=== PATIENT | male | born 1995 | race Caucasian/White ===

== ENCOUNTER 2017-12-25 03:50 | Inpatient (IN) | payer OTHER ==
[2017-12-25] VITALS (9 sets, daily range): BP systolic 116–151; BP diastolic 59–74; PULSE 65–83; RESP 18–20; TEMP 98.1–98.7; O2SAT 94–100
[~2017-12-25] VITALS: Ht 177.8 cm; Wt 80.0 kg
[2017-12-25] MEDS ORDERED: IOHEXOL 350 MG/ML 10 ML VIAL (for RAD DIAG) IVCONTRAST ONE (03:57)
[2017-12-25] MEDS ORDERED: MORPHINE SULFATE 4 MG/ML INJ ONE ×3 (03:58→17:09)
[2017-12-25] MEDS ORDERED: METOCLOPRAMIDE HCL 10 MG/2 ML VIAL ONE (03:59)
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
[2017-12-25 04:13] LABS: AUTOMATED NEUTROPHIL # 4.1 TH/MM3 (1.8-7.7); BASOPHIL % 0.2 % (0.0-2.0); EOSINOPHIL % 0.5 % (0.0-4.0); HEMATOCRIT 40.7 % (39.0-51.0); LYMPH % 37.1 % (9.0-44.0); LYMPHOCYTE # 2.7 TH/MM3 (1.0-4.8); MEAN CELL VOLUME 90.6 FL (80.0-100.0); MEAN CORPUSCULAR HEMOGLOBIN 31.2 PG (27.0-34.0); MEAN CORPUSCULAR HGB CONC 34.4 % (32.0-36.0); MEAN PLATELET VOLUME 8.1 FL (7.0-11.0); MONO % 6.2 % (0.0-8.0); MONOCYTE # 0.5 TH/MM3 (0-0.9); PLATELET COUNT 220 TH/MM3 (150-450); RED BLOOD COUNT 4.49 MIL/MM3 (4.50-5.90); RED CELL DISTRIBUTION WIDTH 14.2 % (11.6-17.2); WHITE BLOOD COUNT 7.4 TH/MM3 (4.0-11.0)
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
[2017-12-25] MEDS ORDERED: CHLORHEXIDINE GLUCONATE 2 % 1 PACK (2 CLOTHS) TOP PRN (04:30)
[2017-12-25] MEDS ORDERED: NURSING INFORMATION XX SCH (04:30)
[2017-12-25] MEDS ORDERED: ONDANSETRON ODT 4 MG TAB PO PRN (04:30)
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
[2017-12-25] MEDS ORDERED: GENTAMICIN 80 MG PREMIX 100 ML IV ONE (04:45)
[2017-12-25] MEDS ORDERED: GENTAMICIN INJ 80 MG in SODIUM CHLORIDE 0.9% INJ 100 ML IV ONE (05:00)
[2017-12-25] MEDS: LACTATED RINGER'S 1000 ML INJ 1,000 ML IV SCH (05:30)
[2017-12-25] MEDS: HYDROmorphone HCL PF 2 MG/ML VIAL IV PUSH PRN ×3 (06:34→14:35)
[2017-12-25] MEDS: cefTRIAXone INJ 1,000 MG in SODIUM CHLORIDE 0.9% INJ 100 ML IV SCH ×2 (06:34→18:57)
[2017-12-25] MEDS ORDERED: ACETAMINOPHEN 1000 MG/100 ML 100 ML IV ONE (06:42)
[2017-12-25] MEDS ORDERED: LACTATED RINGER'S 1000 ML IV PRN (07:45)
[2017-12-25] MEDS ORDERED: SODIUM CHLORID 0.9% 500 ML IV PRN (07:45)
[2017-12-25 08:05] LABS: PROTHROMBIN TIME - PATIENT 10.4 SEC (9.8-11.6)
[2017-12-25] MEDS: MAGNESIUM HYDROXIDE SUSP 30 ML CUP PO SCH ×2 (09:00→19:48)
[2017-12-25] MEDS: DOCUSATE SODIUM 100 MG CAP PO SCH ×2 (09:00→19:48)
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
[2017-12-25] MEDS ORDERED: ROCURONIUM INJ 50 MG/5 ML SYRINGE IV PUSH ONE (12:00)
[2017-12-25] MEDS ORDERED: LIDOCAINE HCL 1% PF 5 ML SYRINGE OTHER ONE (12:00)
[2017-12-25] MEDS ORDERED: PROPOFOL 200 MG/20 ML AMP IV ONE (12:00)
[2017-12-25] MEDS ORDERED: ceFAZolin INJ 1,000 MG VIAL IV ONE ×2 (12:00→15:38)
[2017-12-25] MEDS ORDERED: GLYCOPYRROLATE 1 MG/5 ML SYRINGE IV PUSH ONE (12:00)
[2017-12-25] MEDS ORDERED: NEOSTIGMINE 5 MG/5 ML SYRINGE IV PUSH ONE (12:00)
[2017-12-25] MEDS ORDERED: ONDANSETRON HCL 4 MG/2 ML VIAL IV ONE (12:00)
[2017-12-25] MEDS ORDERED: LACTATED RINGER'S 1000 ML INJ 1,000 ML IV ONE (12:00)
[2017-12-25] MEDS ORDERED: DEXAMETHASONE SOD PHOS 4 MG/ML VIAL IV ONE (12:00)
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
[2017-12-25] MEDS ORDERED: MAGN30S PO (12:44)
[2017-12-25] MEDS ORDERED: DOCU1CAP39 PO (12:44)
[2017-12-25] MEDS ORDERED: GENTAMICIN SULFATE 80 MG/2 ML VIAL ONE ×2 (14:41→15:48)
[2017-12-25] MEDS ORDERED: SODIUM CHLORIDE 0.9% INJ 100 ML ONE (15:49)
[2017-12-25] MEDS ORDERED: SODIUM CHLORIDE 0.9% INJ 50 ML ONE (15:56)
--- NOTE | 2017-12-25 16:38 | HHI.PR ---
cc: Latasha Jaime MD Immediate Post Op Note Procedure Date: December 25, 2017 Pre Op Diagnosis: Open right clavicle fracture Open right scapula fracture Degloving injury to right shoulder Post Op Diagnosis: same Surgeon: Latasha Jaime Loss Mitigation Specialist(s): none Procedure: Irrigation and debridement right open clavicle and scapula fractures Application of wound vac device, 14cm x 7cm x 5cm Findings: Gross contamination with soil and glass Complications: none Specimen(s) removed: none Estimated blood loss: 25cc Anesthesia: General Drains: Other IVF Patient to: PACU Patient Condition: Good Date/Time of Procedure: SEE SURGICAL CARE RECORD Latasha Jaime MD December 25, 2017 16:38
[2017-12-25] MEDS ORDERED: SODIUM CHLORIDE 0.9% FLUSH 10 ML FLUSH IV FLUSH PRN (16:45)
[2017-12-25] MEDS ORDERED: Post-op Orders (for Pharmacy) XX ONE (16:45)
[2017-12-25] MEDS ORDERED: Gentamicin Consult Pharmacy 1 EA XX SCH (16:45)
[2017-12-25] MEDS ORDERED: MIDAZOLAM HCL 2 MG/2 ML VIAL ONE (17:08)
[2017-12-25] MEDS ORDERED: DO NOT ADM ANY ANTICOAGULANT DRUGS PRN (17:30)
[2017-12-25] MEDS: HYDROmorphone HCL PF 0.5 MG/0.5 ML SYRINGE IV PUSH PRN (19:48)
[2017-12-25] MEDS ORDERED: oxyCODONE/ACETAMINOPHEN 5 MG/325 MG TAB PO PRN (21:00)
[2017-12-25] MEDS: SODIUM CHLORIDE 0.9% FLUSH 10 ML FLUSH IV FLUSH SCH (21:00)
[2017-12-25] MEDS: oxyCODONE/ACETAMINOPHEN 10 MG/325 MG TAB PO PRN (21:53)
[2017-12-26] MEDS ORDERED: GENTAMICIN/SOD CHL 80 MG/100 ML IV SCH
[2017-12-26] MEDS: HYDROmorphone HCL PF 0.5 MG/0.5 ML SYRINGE IV PUSH PRN ×3 (00:09→21:27)
[2017-12-26] MEDS: GENTAMICIN/SOD CHL 80 MG/100 ML IV SCH ×6 (00:24→19:34)
[2017-12-26 04:00] VITALS: BP 126/58; PULSE 77; RESP 18; TEMP 98.1; O2SAT 98
[2017-12-26] MEDS ORDERED: CHLORHEXIDINE GLUCONATE 2 % 1 PACK (2 CLOTHS) TOP SCH (04:00)
[2017-12-26 04:18] LABS: AUTOMATED NEUTROPHIL # 12.2 TH/MM3 (1.8-7.7); BASOPHIL % 0.1 % (0.0-2.0); HEMATOCRIT 38.7 % (39.0-51.0); HEMOGLOBIN 13.1 GM/DL (13.0-17.0); LYMPH % 5.7 % (9.0-44.0); LYMPHOCYTE # 0.8 TH/MM3 (1.0-4.8); MEAN CELL VOLUME 90.3 FL (80.0-100.0); MEAN CORPUSCULAR HEMOGLOBIN 30.7 PG (27.0-34.0); MEAN PLATELET VOLUME 8.7 FL (7.0-11.0); MONO % 3.6 % (0.0-8.0); MONOCYTE # 0.5 TH/MM3 (0-0.9); NEUT % 90.6 % (16.0-70.0); PLATELET COUNT 204 TH/MM3 (150-450); RED BLOOD COUNT 4.29 MIL/MM3 (4.50-5.90); RED CELL DISTRIBUTION WIDTH 14.1 % (11.6-17.2); WHITE BLOOD COUNT 13.4 TH/MM3 (4.0-11.0)
[2017-12-26 04:40] LABS: ALBUMIN 3.4 GM/DL (3.4-5.0); ALT (GPT) 25 U/L (12-78); AST (GOT) 18 U/L (15-37); BICARBONATE 24.4 MEQ/L (21.0-32.0); BLOOD UREA NITROGEN 11 MG/DL (7-18); CALCIUM 8.4 MG/DL (8.5-10.1); CHLORIDE 102 MEQ/L (98-107); CREATININE 0.94 MG/DL (0.60-1.30); GLOMERULAR FILTRATION RATE 101 ML/MIN (>89); GLUCOSE,RANDOM 115 MG/DL (74-106); SODIUM (NA) 138 MEQ/L (136-145)
[2017-12-26 04:42] LABS: ALKALINE PHOSPHATASE 74 U/L (45-117); TOTAL BILIRUBIN ADULT 0.6 MG/DL (0.2-1.0)
[2017-12-26] MEDS: oxyCODONE/ACETAMINOPHEN 10 MG/325 MG TAB PO PRN ×3 (05:28→16:57)
[2017-12-26] MEDS: cefTRIAXone INJ 1,000 MG in SODIUM CHLORIDE 0.9% INJ 100 ML IV SCH (05:29)
--- NOTE | 2017-12-26 07:22 | PD.ORT.PN ---
Subjective Subjective Remarks POD 1 s/p I&D with vac placement right clavicle and scapula fxs doing well. pain controlled. resting comfortably Objective Vitals Vital Signs Date Time Temp Pulse Resp B/P (MAP) Pulse Ox O2 Delivery O2 Flow Rate FiO2 12/26/17 04:00 98.1 77 18 126/58 (80) 98 12/25/17 23:37 98.7 82 18 131/61 (84) 97 12/25/17 19:47 98.1 65 18 132/59 (83) 98 12/25/17 18:03 98.4 73 18 151/74 (99) 98 12/25/17 17:40 97.5 77 16 136/57 (83) 96 Room Air 12/25/17 17:15 97.5 60 16 125/58 (80) 96 Room Air 12/25/17 17:00 97.5 64 16 128/60 (82) 94 Room Air 12/25/17 16:45 97.5 84 16 146/80 (102) 100 Nasal Cannula 4 12/25/17 15:00 98.4 83 18 132/66 (88) 98 12/25/17 12:00 98.7 81 18 116/66 (83) 94 12/25/17 08:00 98.6 76 18 119/59 (79) 97 I/O 12/25/17 12/25/17 12/25/17 12/26/17 12/26/17 12/26/17 07:00 15:00 23:00 07:00 15:00 23:00 Intake Total 1800 ml 360 ml Output Total 25 ml 625 ml Balance 1775 ml -265 ml Intake Oral 600 ml 360 ml Other 1200 ml Output Urine Total 575 ml Drainage Total 50 ml Estimated Blood Loss 25 ml # Bowel Movements 0 Result Diagram: 12/26/17 0344 12/26/17 0344 Other Results Laboratory Tests Test 12/25/17 07:36 Prothromb Time International Ratio 1.0 RATIO Prothrombin Time 10.4 SEC (9.8-11.6) Objective Remarks RUE: +vac. good seal. nvi distally Assessment & Plan Assessment and Plan 1) Open right clavicle and Scapula fxs s/p I&D and vac application - POD 1 -NWB -maintain vac -npo after MN -surgery tomorrow with Ronnie Briones PA/Senior Devops Engineer PA December 26, 2017 07:22
[2017-12-26 08:00] VITALS: BP 113/55; PULSE 66; RESP 16; TEMP 98.4; O2SAT 97
[2017-12-26] MEDS: DOCUSATE SODIUM 100 MG CAP PO SCH ×2 (08:54→21:26)
[2017-12-26] MEDS: MAGNESIUM HYDROXIDE SUSP 30 ML CUP PO SCH ×2 (08:54→21:26)
[2017-12-26] MEDS: SODIUM CHLORIDE 0.9% FLUSH 10 ML FLUSH IV FLUSH SCH ×2 (08:55→21:26)
[2017-12-26] MEDS: LACTATED RINGER'S 1000 ML INJ 1,000 ML IV SCH ×2 (10:28→21:28)
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
[2017-12-26 12:00] VITALS: BP 125/65; PULSE 78; RESP 16; TEMP 98.4; O2SAT 95
[2017-12-26] MEDS ORDERED: PHARMACY ORDERED LAB ONE ×2 (15:30→17:00)
[2017-12-26 16:00] VITALS: BP 136/60; PULSE 75; RESP 16; TEMP 98.5; O2SAT 97
[2017-12-26 19:15] VITALS: BP 148/58; PULSE 97; RESP 18; TEMP 98.4; O2SAT 98
[2017-12-26] MEDS ORDERED: SODIUM CHLORID 0.9% 500 ML IV PRN (22:00)
[2017-12-26] MEDS ORDERED: LACTATED RINGER'S 1000 ML IV PRN (22:00)
[2017-12-26] MEDS ORDERED: CHLORHEXIDINE GLUCONATE 2 % 1 PACK (2 CLOTHS) TOPICAL PRN (22:00)
[2017-12-26] MEDS ORDERED: METOPROLOL TARTRATE 25 MG TAB PO PRN (22:00)
[2017-12-26] MEDS ORDERED: POVIDONE IODINE 5% (ANTISEPSIS KIT) 4 APPLICATIONS EACH NARE PRN (22:00)
[2017-12-26 23:08] VITALS: BP 117/57; PULSE 73; RESP 18; TEMP 98.1; O2SAT 100
[2017-12-27 03:39] VITALS: BP 119/59; PULSE 69; RESP 18; TEMP 97.7; O2SAT 100
[2017-12-27] MEDS: oxyCODONE/ACETAMINOPHEN 10 MG/325 MG TAB PO PRN ×4 (04:12→19:35)
[2017-12-27] MEDS: GENTAMICIN INJ 100 MG in SODIUM CHLORIDE 0.9% INJ 100 ML IV SCH ×2 (04:58→13:06)
--- NOTE | 2017-12-27 06:30 | PD.ORT.PN ---
Subjective Subjective Remarks POD 2 s/p I&D with vac placement right clavicle and scapula fxs doing well. pain controlled. resting comfortably Objective Vitals Vital Signs Date Time Temp Pulse Resp B/P (MAP) Pulse Ox O2 Delivery O2 Flow Rate FiO2 12/27/17 03:39 97.7 69 18 119/59 (79) 100 12/26/17 23:08 98.1 73 18 117/57 (77) 100 12/26/17 19:15 98.4 97 18 148/58 (88) 98 12/26/17 16:00 98.5 75 16 136/60 (85) 97 12/26/17 12:00 98.4 78 16 125/65 (85) 95 12/26/17 08:00 98.4 66 16 113/55 (74) 97 I/O 12/26/17 12/26/17 12/26/17 12/27/17 12/27/17 12/27/17 07:00 15:00 23:00 07:00 15:00 23:00 Intake Total 360 ml 202 ml 1562 ml 580 ml Output Total 625 ml 900 ml Balance -265 ml 202 ml 662 ml 580 ml Intake Oral 360 ml 600 ml 480 ml IV Total 202 ml 962 ml 100 ml Output Urine Total 575 ml 775 ml Drainage Total 50 ml 125 ml # Voids 3 # Bowel Movements 0 0 Result Diagram: 12/26/17 0344 12/26/17 0344 Objective Remarks RUE: +vac. good seal. nvi distally Assessment & Plan Assessment and Plan 1) Open right clavicle and Scapula fxs s/p I&D and vac application - POD 2 -NWB -maintain vac -surgery this AM with Ronnie Briones/Integrity Consultant PA December 27, 2017 06:29
[2017-12-27] MEDS ORDERED: GENTAMICIN SULFATE 80 MG/2 ML VIAL ONE (06:59)
[2017-12-27] MEDS ORDERED: ceFAZolin INJ 1,000 MG VIAL ONE (06:59)
[2017-12-27] MEDS ORDERED: VANCOMYCIN HCL 1000 MG VIAL ONE (06:59)
[2017-12-27] MEDS ORDERED: diphenhydrAMINE HCL 25 MG CAP PO PRN (08:00)
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
[2017-12-27] MEDS ORDERED: DO NOT ADM ANY ANTICOAGULANT DRUGS PRN (08:28)
[2017-12-27] MEDS ORDERED: *morphine SULFATE 10 MG/ML PERIprocedure ONLY ONE (08:43)
[2017-12-27] MEDS ORDERED: *HYDROmorphone PF 0.5 MG/0.5 ML PERIprocedure ONLY ONE (08:57)
[2017-12-27] MEDS ORDERED: ERGOCALCIFEROL (VIT D2) 50,000 UNIT CAP PO SCH (09:00)
[2017-12-27] MEDS: CALCIUM/VITAMIN D 250 MG/125 U TAB PO SCH ×3 (09:58→16:46)
[2017-12-27] MEDS: MAGNESIUM HYDROXIDE SUSP 30 ML CUP PO SCH ×2 (09:59→20:30)
[2017-12-27] MEDS: DOCUSATE SODIUM 100 MG CAP PO SCH (09:59)
[2017-12-27] MEDS: SODIUM CHLORIDE 0.9% FLUSH 10 ML FLUSH IV FLUSH SCH ×2 (09:59→20:29)
[2017-12-27 12:00] VITALS: BP 117/58; PULSE 63; RESP 16; TEMP 97.6; O2SAT 96
[2017-12-27] MEDS ORDERED: DEXAMETHASONE SOD PHOS 4 MG/ML VIAL IV ONE (12:00)
[2017-12-27] MEDS ORDERED: KETOROLAC TROMETHAMINE 30 MG/ML (IVP) VIAL IV PUSH ONE (12:00)
[2017-12-27] MEDS ORDERED: ONDANSETRON HCL 4 MG/2 ML VIAL IV PUSH ONE (12:00)
[2017-12-27] MEDS ORDERED: ROCURONIUM INJ 50 MG/5 ML SYRINGE IV PUSH ONE (12:00)
[2017-12-27] MEDS ORDERED: LIDOCAINE HCL 1% PF 5 ML SYRINGE OTHER ONE (12:00)
[2017-12-27] MEDS ORDERED: PROPOFOL 200 MG/20 ML AMP IV ONE (12:00)
[2017-12-27] MEDS ORDERED: GLYCOPYRROLATE 1 MG/5 ML SYRINGE IV PUSH ONE (12:00)
[2017-12-27] MEDS ORDERED: NEOSTIGMINE 5 MG/5 ML SYRINGE IV PUSH ONE (12:00)
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
[2017-12-27] MEDS: ceFAZolin 2 GM PREMIX 50 ML IV SCH ×2 (15:21→22:20)
[2017-12-27] MEDS ORDERED: PHARMACY ORDERED LAB ONE ×4 (15:45→22:00)
[2017-12-27 16:00] VITALS: BP 121/134; PULSE 63; RESP 17; TEMP 97.4; O2SAT 97
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
[2017-12-27] MEDS: METHOCARBAMOL 500 MG TAB PO SCH ×2 (16:46→22:20)
[2017-12-27 20:00] VITALS: BP 138/62; PULSE 74; RESP 17; TEMP 98.1; O2SAT 97
[2017-12-27] MEDS: DOCUSATE SODIUM 50 MG/SENNA 8.6 MG TAB PO SCH (20:30)
[2017-12-27] MEDS ORDERED: GENTAMICIN INJ 100 MG in SODIUM CHLORIDE 0.9% INJ 100 ML IV SCH ×3 (21:00)
[2017-12-27] MEDS: MORPHINE SULFATE 4 MG/ML INJ IV PUSH PRN (23:43)
[2017-12-28 00:57] VITALS: BP 126/66; PULSE 70; RESP 18; TEMP 97.8; O2SAT 97
[2017-12-28 04:00] VITALS: BP 117/58; PULSE 69; RESP 17; TEMP 97.4; O2SAT 96
[2017-12-28] MEDS: METHOCARBAMOL 500 MG TAB PO SCH ×2 (04:54→14:43)
[2017-12-28] MEDS: oxyCODONE/ACETAMINOPHEN 10 MG/325 MG TAB PO PRN ×3 (04:55→16:25)
[2017-12-28] MEDS ORDERED: GENTAMICIN INJ 400 MG in SODIUM CHLORIDE 0.9% INJ 100 ML IV ONE (05:00)
[2017-12-28] MEDS: ceFAZolin 2 GM PREMIX 50 ML IV SCH ×2 (06:03→15:00)
[2017-12-28] MEDS ORDERED: PERC10TA27 PO (06:33)
--- NOTE | 2017-12-28 06:34 | HHI.FF ---
Face to Face Verification Diagnosis: (1) Right clavicle fracture (2) Right scapula fracture Nursing Dressing Changes: Daily dressing change, 4x4s, Xeroform, Coverderm/Primapore I have seen patient Hunter Camacho on 12/28/17. My clinical findings support the need for the requested home health care services because: Limited ability to care for self I certify that my clinical findings support that this patient is homebound because: Post-op weakness Russel Barboza Jr. December 28, 2017 06:34
--- NOTE | 2017-12-28 06:38 | PD.ORT.PN ---
Subjective Subjective Remarks Resting comfortably Objective Vitals Vital Signs Date Time Temp Pulse Resp B/P (MAP) Pulse Ox O2 Delivery O2 Flow Rate FiO2 12/28/17 04:00 97.4 69 17 117/58 (77) 96 12/28/17 00:57 97.8 70 18 126/66 (86) 97 12/27/17 20:00 98.1 74 17 138/62 (87) 97 12/27/17 16:00 97.4 63 17 121/134 (130) 97 12/27/17 12:00 97.6 63 16 117/58 (77) 96 12/27/17 09:14 98.0 62 12 130/89 (103) 97 Room Air 12/27/17 09:00 60 10 130/89 (103) 96 12/27/17 08:45 62 10 135/90 (105) 96 12/27/17 08:30 74 9 149/95 (113) 96 12/27/17 08:25 98.0 75 10 120/74 (89) 96 Room Air I/O 12/27/17 12/27/17 12/27/17 12/28/17 12/28/17 12/28/17 07:00 15:00 23:00 07:00 15:00 23:00 Intake Total 580 ml 602.5 ml 350 ml 730 ml Output Total 50 ml 100 ml Balance 580 ml 552.5 ml 250 ml 730 ml Intake Oral 480 ml 300 ml 620 ml IV Total 100 ml 102.5 ml 50 ml 110 ml Other 500 ml Output Urine Total 100 ml Estimated Blood Loss 50 ml # Voids 3 2 2 # Bowel Movements 0 0 Result Diagram: 12/26/17 0344 12/26/17 0344 Objective Remarks Right upper extremity: Clean dry dressings intact. Sling and swath in place. Distally intact sensation over the radial ulnar median nerve distributions with good capillary refills. He is able to fully extend his fingers make a fist Right lower extremity: Abrasions over the knee. Is able do straight leg test. Moderate tenderness to palpation over the patella directly under abrasions. Distally intact sensation good capillary refills Assessment & Plan Assessment and Plan 1) Open right clavicle and Scapula fxs s/p I&D with traumatic wound closure POD 1 -NWB -Sling and swath at all times with no motion of shoulder -Daily dressing changes to be n.p.o. beginning POD 2 Case management for nursing for dressing changes only. No range of motion remain in sling and swath at all times of right upper extremity Plan for discharge from orthopedic standpoint with follow-up in [address] Anders or PA. We are going to continue to plan on nonoperative treatment of right clavicle and scapula fractures. If the shoulder continues to migrate later fixation of the distal clavicle may be necessary. At this point due to the severe trauma, it is unsafe to plate and screws fixate the fracture. Will reassess at the 2 week inez in office Russel Barboza Jr. December 28, 2017 06:38
[2017-12-28 08:00] VITALS: BP 118/56; PULSE 64; RESP 16; TEMP 98.2; O2SAT 98
[2017-12-28] MEDS: MAGNESIUM HYDROXIDE SUSP 30 ML CUP PO SCH (08:27)
[2017-12-28] MEDS: MORPHINE SULFATE 4 MG/ML INJ IV PUSH PRN (08:27)
[2017-12-28] MEDS: CALCIUM/VITAMIN D 250 MG/125 U TAB PO SCH ×3 (08:28→18:29)
[2017-12-28] MEDS: SODIUM CHLORIDE 0.9% FLUSH 10 ML FLUSH IV FLUSH SCH (08:28)
[2017-12-28] MEDS: DOCUSATE SODIUM 50 MG/SENNA 8.6 MG TAB PO SCH (08:28)
[2017-12-28] MEDS ORDERED: CHOLECALCIFEROL (VIT D3) 1000 UNIT TAB PO SCH (09:00)
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
[2017-12-28] MEDS ORDERED: PHARMACY ORDERED LAB ONE (15:00)
[2017-12-28 16:30] VITALS: BP 132/81; PULSE 58; RESP 16; TEMP 97.3; O2SAT 99
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
== END 2017-12-28 19:40 | disposition home health service (06) | DRG 501 ==
LOC: NEPI 03:50 → EDBD 04:49 → NEDA 04:49 → N06B 06:43
PROVIDERS: ADMIT Surgery Trauma Surgery; ATTEND Surgery Trauma Surgery
PROC: 0KB50ZZ Excision of Right Shoulder Muscle, Open Approach (ICD-10-PCS; 2017-12-25)
PROC: 0PB90ZZ Excision of Right Clavicle, Open Approach (ICD-10-PCS; 2017-12-25)
PROC: 0JQ63ZZ Repair Chest Subcutaneous Tissue and Fascia, Percutaneous Approach (ICD-10-PCS; 2017-12-27)
PROC: 0PB90ZZ Excision of Right Clavicle, Open Approach (ICD-10-PCS; 2017-12-27)
PROC: 0PB50ZZ Excision of Right Scapula, Open Approach (ICD-10-PCS; principal; 2017-12-27 07:14)
DX: S42.101 Fracture of unspecified part of scapula, right shoulder (principal); S21.111A Laceration without foreign body of right front wall of thorax without penetration into thoracic cavity, initial encounter; S42.00 Fracture of unspecified part of clavicle; R40.2413 Glasgow coma scale score 13-15, at hospital admission; V89.2XXA Person injured in unspecified motor-vehicle accident, traffic, initial encounter
CPT/HCPCS: 70450; 71045; 71260; 72125; 72170; 73000; 74177; 76000; 80048; 80053; 80170; 80307; 85025; 85610; 85730; 86850; 86900; 86901; 86920; 94150; 96374; 96375; 96376; 99291; G0390; J0131; J0690; J0696; J1100; J1170; J1580; J1885; J2250; J2270; J2405; J2710; J2765; J3010; J3370; J7120; Q9967